=== PATIENT | male | born 1970 | race Caucasian/White ===

== ENCOUNTER 2019-06-21 15:00 | Emergency (ER) | payer BC ==
[2019-06-21] MEDS ORDERED: Sodium Chloride 0.9% 10 ML Syringe FLUSH PRN (15:19)
[2019-06-21] MEDS ORDERED: HYDROmorphone 1 MG/ML Syringe IVPUSH ONE (15:20)
[2019-06-21] MEDS ORDERED: Famotidine 20 MG/2 ML SDV IVPUSH ONE (15:20)
[2019-06-21] MEDS ORDERED: Ondansetron 4 MG/2 ML SDV IVPUSH ONE (15:22)
--- NOTE | 2019-06-21 16:00 | CR ---
Chest: Two views of the chest were obtained. Comparison: No prior chest x-ray. Heart size and mediastinum are normal. Lungs are clear. Bony structures are unremarkable for the patient's age. Impression: 1. Nothing acute is seen on two-view chest x-ray. Diagnostic code #1
--- NOTE | 2019-06-21 16:50 | EDM.PDOC ---
ED HPI GENERAL MEDICAL PROBLEM - General Chief Complaint: Chest Pain Stated Complaint: CHEST PAIN Time Seen by Provider: 06/21/19 15:13 Source of Information: Reports: Patient History Limitations: Reports: No Limitations - History of Present Illness INITIAL COMMENTS - FREE TEXT/NARRATIVE: The patient presents with chest pain and epigastric pain. This started earlier today at about 11am after eating a granola bar. He is gluten intolerant and he is concerned it could be that. He tried taking pepto and peppermint but nothing is helping. He has no history of heart disease. He has no history of hypertension or hypercholesterolemia. He has no medical problems and he does not smoke. He had nausea and vomiting and he had some diarrhea. Onset: Sudden Duration: Hour(s): Location: Reports: Chest, Abdomen Quality: Reports: Sharp Severity: Severe Improves with: Reports: None Worsens with: Reports: None Associated Symptoms: Reports: Chest Pain, Nausea/Vomiting. Denies: Cough, Fever /Chills, Headaches, Shortness of Breath Middle Epigastric Pain Score (Numeric/FACES): 10 - Related Data Allergies Allergy/AdvReac Type Severity Reaction Status Date / Time gluten Allergy Abdominal Verified 06/21/19 15:08 Pain Home Meds: Home Meds Fexofenadine [Brittany] 30 mg PO DAILY 06/21/19 [History] Hydrocodone/Acetaminophen [Hydrocodon-Acetaminophen 5-325] 1 - 2 each PO Q6HR PRN #10 tablet 06/21/19 [Rx] Past Medical History - Past Health History Medical/Surgical History: Denies Medical/Surgical History Social & Family History - Caffeine Use Caffeine Use: Reports: None ED ROS GENERAL - Review of Systems Review Of Systems: See Below Constitutional: Reports: No Symptoms HEENT: Reports: No Symptoms Respiratory: Reports: No Symptoms Cardiovascular: Reports: Chest Pain Endocrine: Reports: No Symptoms GI/Abdominal: Reports: Abdominal Pain, Diarrhea, Nausea, Vomiting : Reports: No Symptoms Musculoskeletal: Reports: No Symptoms ED EXAM, GENERAL - Physical Exam Exam: See Below Exam Limited By: No Limitations General Appearance: Alert, No Apparent Distress Ears: Normal External Exam Nose: Normal Inspection Head: Atraumatic, Normocephalic Neck: Normal Inspection Respiratory/Chest: No Respiratory Distress, Lungs Clear, Normal Breath Sounds Cardiovascular: Regular Rate, Rhythm, No Edema, No Murmur GI/Abdominal: Soft, No Organomegaly, No Mass, Tender (Tenderness to the epigastric region) Extremities: Normal Inspection Neurological: Alert, Oriented, No Motor/Sensory Deficits EKG INTERPRETATION EKG Date: 06/21/19 Time: 15:08 Rhythm: Other (sinus bradycardia) Rate (Beats/Min): 45 [place]: Normal P-Wave: Present QRS: Normal ST-T: Normal QT: Normal Course - Vital Signs Last Recorded V/S: Last Vital Signs Temp 97.8 F 06/21/19 15:04 Pulse 45 L 06/21/19 15:04 Resp 22 H 06/21/19 15:04 BP 140/87 06/21/19 15:04 Pulse Ox 95 06/21/19 15:49 - Orders/Labs/Meds Orders: Active Orders 24 hr Category Date Time Status Cardiac Monitoring [RC] . DIRECTED Care 06/21/19 15:19 Active EKG Documentation Completion [RC] STAT Care 06/21/19 15:19 Active Peripheral IV Care [RC] . DIRECTED Care 06/21/19 15:19 Active TROPONIN I [CHEM] Stat Lab 06/21/19 17:04 Ordered Sodium Chloride 0.9% [Saline Flush] Med 06/21/19 15:19 Active 10 ml FLUSH ASDIRECTED PRN Peripheral IV Insertion Adult [OM.PC] Stat Oth 06/21/19 15:19 Ordered Medication Orders Sodium Chloride (Saline Flush) 10 ml FLUSH ASDIRECTED PRN PRN Reason: Keep Vein Open Last Admin: 06/21/19 15:39 Dose: 10 ml Labs: Laboratory Tests 06/21/19 06/21/19 06/21/19 Range/Units 15:10 15:10 15:10 WBC 8.02 (4.23-9.07) K/mm3 RBC 5.11 (4.63-6.08) M/mm3 Hgb 16.0 (13.7-17.5) gm/dl Hct 45.1 (40.1-51.0) % MCV 88.3 (79.0-92.2) fl MCH 31.3 (25.7-32.2) pg MCHC 35.5 (32.2-35.5) g/dl RDW Std Deviation 40.0 (35.1-43.9) fL Plt Count 184 (163-337) K/mm3 MPV 9.9 (9.4-12.3) fl Neut % (Auto) 81.9 H (34.0-67.9) % Lymph % (Auto) 12.1 L (21.8-53.1) % [place] % (Auto) 5.2 L (5.3-12.2) % Eos % (Auto) 0.6 L (0.8-7.0) Baso % (Auto) 0.1 (0.1-1.2) % Neut # (Auto) 6.56 H (1.78-5.38) K/mm3 Lymph # (Auto) 0.97 L (1.32-3.57) K/mm3 [place] # (Auto) 0.42 (0.30-0.82) K/mm3 Eos # (Auto) 0.05 (0.04-0.54) K/mm3 Baso # (Auto) 0.01 (0.01-0.08) K/mm3 D-Dimer, Quantitative 0.37 (0.19-0.50) mg/L Sodium 140 (136-145) mEq/L Potassium 3.5 (3.5-5.1) mEq/L Chloride 100 (98-107) mEq/L Carbon Dioxide 27 (21-32) mEq/L Anion Gap 16.5 H (5-15) BUN 17 (7-18) mg/dL Creatinine 1.4 H (0.7-1.3) mg/dL Est Cr Clr Drug Dosing 77.96 mL/min Estimated GFR (MDRD) 54 (>60) mL/min BUN/Creatinine Ratio 12.1 L (14-18) Glucose 109 H (74-106) mg/dL Calcium 9.1 (8.5-10.1) mg/dL Total Bilirubin 0.7 (0.2-1.0) mg/dL AST 22 (15-37) U/L ALT 32 (16-63) U/L Alkaline Phosphatase 60 (46-116) U/L Troponin I < 0.017 (0.00-0.056) ng/mL Total Protein 7.2 (6.4-8.2) g/dl Albumin 4.3 (3.4-5.0) g/dl Globulin 2.9 gm/dL Albumin/Globulin Ratio 1.5 (1-2) Meds: Medications Generic Name Dose Route Start Last Admin Trade Name Rajatq PRN Reason Stop Dose Admin Sodium Chloride 10 ml 06/21/19 15:19 06/21/19 15:39 Saline Flush FLUSH 10 ml ASDIRECTED PRN Administration Keep Vein Open Discontinued Medications Generic Name Dose Route Start Last Admin Trade Name Rajatq PRN Reason Stop Dose Admin Famotidine 20 mg 06/21/19 15:20 06/21/19 15:38 Pepcid IVPUSH 06/21/19 15:21 20 mg ONETIME ONE Administration Hydromorphone HCl 1 mg 06/21/19 15:20 06/21/19 15:38 Dilaudid IVPUSH 06/21/19 15:21 1 mg ONETIME ONE Administration Ondansetron HCl 4 mg 06/21/19 15:22 06/21/19 15:38 Zofran IVPUSH 06/21/19 15:23 4 mg ONETIME ONE Administration - Re-Assessments/Exams Free Text/Narrative Re-Assessment/Exam: 06/21/19 17:09 I ordered an IV saline lock, EKG, CXR, labs, dilaudid 1mg IV, zofran 4mg IV and pepcid 20mg IV. 06/21/19 17:14 His EKG shows a sinus bradycardia with no acute changes. His CXR looks good. His CBC and CMP look good. His troponin and D-dimer are negative. He feels better. I will get a repeat troponin and discharge him home. I will get him on pepcid and something for pain. Departure - Departure Time of Disposition: 17:20 Disposition: Home, Self-Care 01 Condition: Good Clinical Impression: Atypical chest pain Gastritis Qualifiers: Gastritis type: unspecified gastritis Chronicity: acute Gastritis bleeding: without bleeding Qualified Code(s): K29.00 - Acute gastritis without bleeding Prescriptions: Hydrocodone/Acetaminophen [Hydrocodon-Acetaminophen 5-325] 1 - 2 each PO Q6HR PRN #10 tablet PRN Reason: Pain Referrals: PCP,Not In Area [Primary Care Provider] - Forms: ED Department Discharge Additional Instructions: Take pepcid daily for 2 weeks. Take tylenol for pain. If that does not help, try the hydrocodone. Avoid any heavy or spicy food. Please return if you are worse. - My Orders Last 24 Hours: My Active Orders 10/24/19 15:19 Cardiac Monitoring [RC] . DIRECTED EKG Documentation Completion [RC] STAT Peripheral IV Care [RC] . DIRECTED Sodium Chloride 0.9% [Saline Flush] 10 ml FLUSH ASDIRECTED PRN Peripheral IV Insertion Adult [OM.PC] Stat 06/21/19 17:04 TROPONIN I [CHEM] Stat - Assessment/Plan Last 24 Hours: My Active Orders 06/21/19 15:19 Cardiac Monitoring [RC] . DIRECTED EKG Documentation Completion [RC] STAT Peripheral IV Care [RC] . DIRECTED Sodium Chloride 0.9% [Saline Flush] 10 ml FLUSH ASDIRECTED PRN Peripheral IV Insertion Adult [OM.PC] Stat 06/21/19 17:04 TROPONIN I [CHEM] Stat
== END 2019-06-21 17:30 | disposition home or self-care (01) ==
LOC: JD.ED 15:00
DX: R07.89 Other chest pain (principal); K59.00 Constipation, unspecified; Z91.018 Allergy to other foods
CPT/HCPCS: 36415; 71046; 80053; 84484; 85025; 85379; 93005; 96374; 96375; 99285; J1170; J2405; J3490; 93010; 99284